=== PATIENT | female | born 1935 | race Caucasian/White ===

== ENCOUNTER 2017-10-25 11:21 | Inpatient (IN) | payer MEDICARE, MEDICAID ==
[~2017-10-25] VITALS: Ht 165.1 cm; Wt 104.3 kg
[2017-10-25] MEDS ORDERED: PRAV20TA4 PO (12:14)
[2017-10-25] MEDS ORDERED: METO50TA3 PO (12:14)
[2017-10-25] MEDS ORDERED: APIX5TAB PO (12:14)
[2017-10-25] MEDS ORDERED: METF500T4 PO (12:14)
[2017-10-25] MEDS ORDERED: DILT120C87 PO (12:14)
[2017-10-25] MEDS ORDERED: OMEP40CA37 PO (12:14)
[2017-10-25] MEDS ORDERED: FURO80TA85 PO (12:14)
[2017-10-25] MEDS ORDERED: LEVO137T2 PO (12:14)
[2017-10-25] MEDS ORDERED: BENA10TA2 PO (12:14)
[2017-10-25] MEDS ORDERED: DIGO125T PO (12:14)
[2017-10-25] MEDS ORDERED: DULO60CA45 PO (12:14)
--- NOTE | 2017-10-25 12:40 | NUR ---
COMING FROM HOME,SENT BY DR GUZMAN FOR MED CLEARANCE TO GO BACK TO [facility]. NAD NOTED. VSS. SEEEN BY FOR EVAL. SAFETY AND COMFORT MEASURES PROVIDED. WILL MONITOR.
--- NOTE | 2017-10-25 13:30 | NUR ---
IV ACCESS STARTED.
[2017-10-25 13:41] LABS: BASOPHILS # (AUTO) 0.1 /CMM (0.0-0.2); BASOPHILS % (AUTO) 1.5 % (0.0-2.0); EOSINOPHILS # (AUTO) 0.1 /CMM (0.0-0.7); EOSINOPHILS % (AUTO) 1.7 % (0.0-6.0); HEMATOCRIT 47 % (33-45); HEMOGLOBIN 15.7 g/dL (11.5-14.8); LYMPHOCYTES # (AUTO) 1.7 /CMM (0.8-4.8); LYMPHOCYTES % (AUTO) 24.9 % (20.0-44.0); MEAN CORPUSCULAR HEMOGLOBIN 31 PG (26.0-33.0); MEAN CORPUSCULAR HGB CONC 34 g/dl (31.0-36.0); MEAN CORPUSCULAR VOLUME 92 fL (82-100); MONOCYTES # (AUTO) 0.5 /CMM (0.1-1.30); MONOCYTES % (AUTO) 6.6 % (2.0-12.0); NEUTROPHILS # (AUTO) 4.6 /CMM (1.8-8.9); NEUTROPHILS % (AUTO) 65.3 % (43.0-81.0); PLATELET COUNT (AUTO) 284 /CMM (150-450); RDW COEFFICIENT OF VARIATION 13.4 (11.5-15.0); RED BLOOD CELL COUNT(AUTO) 5.09 MIL/uL (4.0-5.2)
[2017-10-25 13:50] LABS: CARBON DIOXIDE 35 mmol/L (21-32); CHLORIDE 97 mmol/L (98-107); CREATININE 1.2 mg/dL (0.6-1.3); GLUCOSE 294 mg/dL (74-106); POTASSIUM 4.2 mmol/L (3.5-5.1); SODIUM SERUM 140 mmol/L (136-145); UREA NITROGEN, BLOOD 25 mg/dL (7-18)
[2017-10-25] MEDS ORDERED: ONDANSETRON HCL/PF 4 MG/2 ML VIAL IVP PRN ×2 (15:30→15:45)
[2017-10-25] MEDS ORDERED: MAGNESIUM HYDROXIDE 30 ML UDC PO PRN ×2 (15:30→15:45)
[2017-10-25] MEDS ORDERED: HYDROCODONE/APAP 5/325MG 1 EACH TABLET PO PRN ×2 (15:30→15:45)
[2017-10-25] MEDS ORDERED: INSULIN REGULAR, HUMAN 100 UNIT/ML 3 ML VIAL SQ PRN (15:30)
[2017-10-25] MEDS ORDERED: ZOLPIDEM TARTRATE 5 MG TABLET PO PRN ×2 (15:30→15:45)
[2017-10-25] MEDS ORDERED: ACETAMINOPHEN 325 MG TABLET PO PRN ×2 (15:30→15:45)
[2017-10-25] MEDS ORDERED: Z GUARD REMEDY 2 OZ OINT TP PRN ×2 (15:30→15:45)
[2017-10-25] MEDS ORDERED: DEXTROSE 50%-WATER 50 ML DISP.SYRIN IV PRN ×2 (15:30→15:45)
[2017-10-25] MEDS ORDERED: MAG HYDROX/AL HYDROX/SIMETH 30 ML UDC PO PRN ×2 (15:30→15:45)
--- NOTE | 2017-10-25 15:40 | NUR ---
ADMIT TO THE MS FLOOR; CONTINUE PLAN OF CARE - ACCEPTED BY DR. INGRAM
[2017-10-25 16:00] VITALS: BP 129/86
--- NOTE | 2017-10-25 16:00 | NUR ---
MS RN RECEIVED ON BED, AWAKE,ALERT,ORIENTED X4,MONGOLIAN SPEAKING, NOT IN ANY FORM OF DISTRESS, RESPIRATIONS EVEN AND UNLABORED,NO SOB NOTED, LUNGS ARE CLEAR,ABDOMEN SOFT,POSITIVE BOWEL SOUNDS, DENIES PAIN AT THIS TIME,CAME IN FROM ER W/ CC OF GENERALIZED WEAKNESS SECONDARY TO SMOKE INHALATION, WILL MONITOR PATIENT'S CONDITION.
[2017-10-25] MEDS ORDERED: APIXABAN 5 MG TABLET PO SCH (17:00)
[2017-10-25] MEDS: APIXABAN 5 MG TABLET PO SCH (17:00)
[2017-10-25] MEDS: METOPROLOL TARTRATE 50 MG TABLET PO SCH (17:00)
[2017-10-25] MEDS ORDERED: METOPROLOL TARTRATE 50 MG TABLET PO SCH (17:00)
--- NOTE | 2017-10-25 17:00 | NUR ---
MS RN ADMITTED UNDER THE SERVICE OF DR. INGRAM, ALL NEEDS ATTENDED.
[2017-10-25] MEDS: BLOOD SUGAR DIAGNOSTIC 1 EACH STRIP IN SCH ×2 (17:23→21:41)
[2017-10-25] MEDS ORDERED: BLOOD SUGAR DIAGNOSTIC 1 EACH STRIP IN SCH (17:30)
--- NOTE | 2017-10-25 17:30 | NUR ---
MS LANDAVERDE BS - 136 - 2 UNITS OF REGULAR INSULIN GIVEN SQ.
[2017-10-25] MEDS: INSULIN REGULAR, HUMAN 100 UNIT/ML 3 ML VIAL SQ PRN ×2 (17:40→21:45)
--- NOTE | 2017-10-25 18:47 | NUR ---
MS RN ON BED, NO CHANGE OF CONDITION, ALL NEEDS ATTENDED.
[2017-10-25 20:00] VITALS: BP 123/63
[2017-10-25 20:34] VITALS: BP 123/63
[2017-10-25] MEDS: METFORMIN 500 MG TABLET PO SCH (20:38)
[2017-10-25] MEDS ORDERED: METFORMIN 500 MG TABLET PO SCH (21:00)
[2017-10-25] MEDS: PRAVASTATIN SODIUM 20 MG TABLET PO SCH (21:49)
[2017-10-25] MEDS ORDERED: PRAVASTATIN SODIUM 20 MG TABLET PO SCH (22:00)
--- NOTE | 2017-10-26 04:45 | NUR ---
RN NOTES No significant change in condition. Patient slept comfortably during shift. Accucheck done no s/s of hypo/hyperglycemia. ADue meds given as ordered. All needs attended. Will continue to monitor.
[2017-10-26] MEDS: INSULIN REGULAR, HUMAN 100 UNIT/ML 3 ML VIAL SQ PRN ×4 (06:17→21:43)
[2017-10-26] MEDS: BLOOD SUGAR DIAGNOSTIC 1 EACH STRIP IN SCH ×4 (06:20→21:33)
[2017-10-26] MEDS ORDERED: LEVOTHYROXINE SODIUM 137 MCG TABLET PO SCH (07:30)
[2017-10-26] MEDS ORDERED: PANTOPRAZOLE 40 MG TABLET.DR PO SCH (07:30)
[2017-10-26 08:00] VITALS: BP 160/89
--- NOTE | 2017-10-26 08:00 | NUR ---
RN NOTES RECEIVED PATIENT IN THE ROOM, SITTING EDGE OF THE BED, PATIENT LITHUANIAN LAURENKER, A/O X3, PATIENT HAS NO RESPIRATORY DISTRESS, V/S TAKEN, ADMINISTERED SCHEDULED MEDICATION, IV LINE ON RIGHT HAND INTACT, PATIENT USING WALKER ASSIST ADL'S, AND BATHROOM, ENCOURAGED TO EXPRESS FEELINGS AND CONCERNS, CALL LIGHT WITHIN TO REACH, SAFETY PRECAUTION MAINTAINED ALL THE TIME.
[2017-10-26] MEDS ORDERED: DIGOXIN 0.125 MG TABLET PO SCH (09:00)
[2017-10-26] MEDS ORDERED: BENAZEPRIL HCL 10 MG TABLET PO SCH (09:00)
[2017-10-26] MEDS ORDERED: FUROSEMIDE 80 MG TABLET PO SCH (09:00)
[2017-10-26] MEDS ORDERED: DULOXETINE HCL 30 MG CAPSULE.DR PO SCH (09:00)
[2017-10-26] MEDS ORDERED: DILTIAZEM HCL CD 120 MG PO SCH (09:00)
[2017-10-26] MEDS: METFORMIN 500 MG TABLET PO SCH ×2 (10:23→21:31)
[2017-10-26] MEDS: LEVOTHYROXINE SODIUM 137 MCG TABLET PO SCH (10:23)
[2017-10-26] MEDS: DULOXETINE HCL 30 MG CAPSULE.DR PO SCH (10:23)
[2017-10-26] MEDS: PANTOPRAZOLE 40 MG TABLET.DR PO SCH (10:23)
[2017-10-26] MEDS: METOPROLOL TARTRATE 50 MG TABLET PO SCH ×2 (10:24→17:35)
[2017-10-26] MEDS: FUROSEMIDE 80 MG TABLET PO SCH (10:24)
[2017-10-26] MEDS: DILTIAZEM HCL CD 120 MG PO SCH (10:24)
[2017-10-26] MEDS: BENAZEPRIL HCL 10 MG TABLET PO SCH (10:25)
[2017-10-26] MEDS: APIXABAN 5 MG TABLET PO SCH ×2 (12:03→17:34)
--- NOTE | 2017-10-26 13:00 | NUR ---
RN NOTES PATIENT IN THE BED BS-318 MG/DL, COVERAGE GIVEN, NO ACUTE DISTRESS, PATIENT REFUSED PAIN AT THIS TIME. CALL LIGHT WITHIN TO REACH. CONTINUED MONITORING.
[2017-10-26] MEDS: DIGOXIN 0.125 MG TABLET PO SCH (15:55)
[2017-10-26 16:00] VITALS: BP 141/81
--- NOTE | 2017-10-26 17:02 | NUR ---
RN NOTES BS-250, PATIENT LYING SHEKHAR OF THE BED, NO ACUTE DISTRESS, CALL LIGHT WITHIN TO REACH, CONTINUED MONITORING.
--- NOTE | 2017-10-26 18:30 | NUR ---
RN NOTES BS-250 MG/DL PATIENT MED COMPLIANT, V/S STABLE, NO C/O PAIN, CALL LIGHT WITHIN TO REACH, PATIENT EATING. CALL LIGHT WITHIN TO REACH, SAFETY PRECAUTION MAINTAINED ALL THE TIME. ENDORSED ONCOMING NURSE FOR CONTINUATION OF CARE.
--- NOTE | 2017-10-26 19:30 | NUR ---
MS TABBER INITIAL NOTES SEEN PT IN LYING AND RESTING AT THIS TIME BUT AROUSES TO TOUCH, ISRAELI SPEAKING ONLY BUT UNDERSTOOD SIMPLE IRISH . DENIES ANY PAIN OR ANY DISCOMFORT AT THIS TIME. KEPT HER WARM AND COMFORTABLE AT ALL TIMES. NO SOB NOTED. PLACE CALL LIGHT AT REACH. WILL CONTINUE TO MONITOR.
[2017-10-26 20:00] VITALS: BP 128/73
[2017-10-26] MEDS: PRAVASTATIN SODIUM 20 MG TABLET PO SCH (21:38)
--- NOTE | 2017-10-27 02:14 | NUR ---
SAFETY DEPOSIT CLERK/NOTES PT SLEEPING COMFORTABLY IN BED WITHOUT ANY ACUTE DISTRESS NOTED. RESPIRATION EVEN AND NON-LABORED. KEPT HER WARM AND COMFORTABLE AT ALL TIMES.PLACE CALL LIGHT AT REACH.
[2017-10-27] MEDS: PANTOPRAZOLE 40 MG TABLET.DR PO SCH (06:21)
[2017-10-27] MEDS: LEVOTHYROXINE SODIUM 137 MCG TABLET PO SCH (06:21)
[2017-10-27] MEDS: BLOOD SUGAR DIAGNOSTIC 1 EACH STRIP IN SCH ×4 (06:21→21:17)
[2017-10-27] MEDS: INSULIN REGULAR, HUMAN 100 UNIT/ML 3 ML VIAL SQ PRN ×5 (06:22→21:20)
--- NOTE | 2017-10-27 06:31 | NUR ---
MS INTERMEDIATE TEACHER NOTES PT WOKE UP ASSISTED TO THE RESTROOM, NO SIGNS OF ANY SOB NOTED, SHE ONLY STATED "PRIO MEANS COLD". BAKC TO BED AND BLOOD SUGAR CHECKED DONE 278, 6 UNITS OF INSULIN GIVEN ORDERED, NO SIGNS OF HYPER GLYCEMIA NOTED. KEPT HER WARM AND COMFORTABLE AT ALL TIMES. WILL CONTINUE TO MONITOR. PLACE CALL LIGHT AT REACH.
--- NOTE | 2017-10-27 07:01 | NUR ---
MS CAD DESIGNER CLOSING NOTES' PT BACK TO SLEEP , STABLE TAYLOR THE NIGHT AND SLEPT WELL. ALL DUE MEDS GIVEN AND ALL NEEDS MET. NO SOB NOTED AND NO SIGNS OF ANY DISCOMFORT, KEPT HER WARM AND COMFORTABLE AT ALL TIMES. BED IN LOW AND LOCK IN POSITION WITH SIDE RAILS X2 UP. PLACE CALL LIGHT AT REACH. ENDORSE TO AM NURSE FOR CONTINUITY OF CARE.
[2017-10-27 08:00] VITALS: BP 140/65
--- NOTE | 2017-10-27 08:00 | NUR ---
MS LANDAVERDE AM NOTES RECEIVED PATIENT IN THE ROOM, SITTING EDGE OF THE BED, PATIENT MALDIVIAN SPEAKING ONLY, A/O X3, PATIENT HAS NO RESPIRATORY DISTRESS, IV LINE ON RIGHT HAND INTACT, PATIENT USING WALKER AND ASSISTED WITH ADL'S, AND BATHROOM, ENCOURAGED TO EXPRESS FEELINGS AND CONCERNS, CALL LIGHT WITHIN TO REACH, SAFETY PRECAUTION MAINTAINED ALL THE TIME.
[2017-10-27] MEDS: DILTIAZEM HCL CD 120 MG PO SCH (09:03)
[2017-10-27] MEDS: FUROSEMIDE 80 MG TABLET PO SCH (09:04)
[2017-10-27] MEDS: DULOXETINE HCL 30 MG CAPSULE.DR PO SCH (09:04)
[2017-10-27] MEDS: METFORMIN 500 MG TABLET PO SCH ×2 (09:04→21:24)
[2017-10-27] MEDS: BENAZEPRIL HCL 10 MG TABLET PO SCH (09:05)
[2017-10-27] MEDS: METOPROLOL TARTRATE 50 MG TABLET PO SCH ×2 (09:05→17:22)
[2017-10-27] MEDS: APIXABAN 5 MG TABLET PO SCH ×2 (09:06→17:20)
[2017-10-27] MEDS: DIGOXIN 0.125 MG TABLET PO SCH (13:06)
[2017-10-27 16:00] VITALS: BP 144/77
--- NOTE | 2017-10-27 18:03 | NUR ---
RN MS CLOSING NOTES Resident sitting in chair. Pt noted to have BS 410 @ 1710 10 units given, rechecked @1750 BS 429 after eating dinner, notified Dr Cordero with orders to cover again based on the sliding scale, pt refused, explain risk and benefits, strongly refused. Endorsed to sap solutions architect nurse to rechecked and continue monitor pt. Patient denies any distress, s/sx hypo/hyperglycemia and sitting in the chair at the hallway. No SOB noted, Breathing unlabored. Denies any pain.
--- NOTE | 2017-10-27 19:45 | NUR ---
MS METAL PRODUCTS VIEWER INITIAL NOTES PT SEEN SITTING IN THE CHAIR ALERT [place] SPEAKING ONLY. DENIES ANY PAIN OR ANY DISCOMFORT. NO SOB NOTED , BREATHING EVEN AND NON-LABORED. PT STATED IN UZBEK SHE WANTS TO GO HOME. SPOKE TO HER WITH THE HELPED OF LULI ÁLVAREZ. KEPT HER SAFE AND COMFORTABLE AT ALL TIMES. WILL CONTINUE TO MONITOR.
[2017-10-27 20:00] VITALS: BP_SYST 115; BP_SYST 135; BP_DIAS 49; BP_DIAS 63
--- NOTE | 2017-10-27 21:20 | NUR ---
MS DONOR CENTER TECHNICIAN NOTES BLOOD SUGAR CHECKED 295, 6 UNITS OF INSULIN GIVEN PLUS HER ROUTINE GLUCOPHAGE GIVEN PO ORDERED. SNACKS ALSO SERVED. NO SIGNS OF HYPER GLYCEMIA NOTED. WILL CONTINUE TO MONITOR. PLACE CALL LIGHT AT REACH.
[2017-10-27] MEDS: PRAVASTATIN SODIUM 20 MG TABLET PO SCH (23:33)
--- NOTE | 2017-10-28 | NUR ---
ELECTRO MECHANICAL DESIGNER/NOTES PT SLEEPING COMFORTABLY IN BED WITHOUT ANY ACUTE DISTRESS NOTED. RESPIRATION EVEN AND NON-LABORED, KEPT HER WARM AND COMFORTABLE AT ALL TIMES. WILL CONTINUE TO MONITOR.
[2017-10-28] MEDS: PANTOPRAZOLE 40 MG TABLET.DR PO SCH (06:20)
[2017-10-28] MEDS: LEVOTHYROXINE SODIUM 137 MCG TABLET PO SCH (06:20)
[2017-10-28] MEDS: BLOOD SUGAR DIAGNOSTIC 1 EACH STRIP IN SCH ×2 (06:20→13:26)
[2017-10-28] MEDS: INSULIN REGULAR, HUMAN 100 UNIT/ML 3 ML VIAL SQ PRN ×2 (06:22→13:25)
--- NOTE | 2017-10-28 06:51 | NUR ---
MS BERTRAM FAUSTO NOTES PT SLEEPING AT THIS TIME, BUT AROUSES TO TOUCH, BLOOD SUGAR CHECKED DONE, 270, 6 UNITS OF INSULIN GIVEN, NO SIGNS OF HYPER GLYCEMIA NOTED. ALL DUE MEDS GIVEN . SLEPT WELL AND STABLE TAYLOR THE NIGHT. KEPT HIM WARM AND COMFORTABLE AT ALL TIMES. PLACE CALL LIGHT AT REACH. WILL ENDORSE TO AM NURSE FOR CONTINUITY OF CARE.
--- NOTE | 2017-10-28 07:58 | NUR ---
MS RN OPENING NOTES PATIENT SLEEPING, AROUSABLE , RESPONSIVE TO VERBAL STIMULI, HOB ELEVATED. BED IN LOW POSITION, LOCKED. SIDERAILS UP X2. NO SOB NOTED. RESPIRATIONS EVEN AND UNLABORED. IV ACCESS ON RFA PATENT, NO REDNESS, NO S/SX OF INFILTRATION NOTED. CALL LIGHT PLACED WITHIN REACH. WILL CONTINUE TO MONITOR ACCORDINGLY.
[2017-10-28 08:00] VITALS: BP 144/76
[2017-10-28 08:34] LABS: BASOPHILS % (AUTO) 0.3 % (0.0-2.0); EOSINOPHILS # (AUTO) 0.1 /CMM (0.0-0.7); HEMATOCRIT 49 % (33-45); LYMPHOCYTES # (AUTO) 1.9 /CMM (0.8-4.8); LYMPHOCYTES % (AUTO) 26.7 % (20.0-44.0); MEAN CORPUSCULAR HEMOGLOBIN 31 PG (26.0-33.0); MEAN CORPUSCULAR HGB CONC 33 g/dl (31.0-36.0); MEAN CORPUSCULAR VOLUME 94 fL (82-100); MONOCYTES # (AUTO) 0.5 /CMM (0.1-1.30); MONOCYTES % (AUTO) 6.6 % (2.0-12.0); NEUTROPHILS # (AUTO) 4.7 /CMM (1.8-8.9); NEUTROPHILS % (AUTO) 64.4 % (43.0-81.0); PLATELET COUNT (AUTO) 270 /CMM (150-450); RDW COEFFICIENT OF VARIATION 14.3 (11.5-15.0); RED BLOOD CELL COUNT(AUTO) 5.25 MIL/uL (4.0-5.2); WHITE BLOOD COUNT (AUTO) 7.3 K/uL (4.3-11.0)
[2017-10-28] MEDS: METFORMIN 500 MG TABLET PO SCH (08:59)
[2017-10-28] MEDS: DULOXETINE HCL 30 MG CAPSULE.DR PO SCH (08:59)
[2017-10-28] MEDS: APIXABAN 5 MG TABLET PO SCH (08:59)
[2017-10-28 09:00] VITALS: BP 144/76
[2017-10-28] MEDS: FUROSEMIDE 80 MG TABLET PO SCH (09:00)
[2017-10-28] MEDS: DILTIAZEM HCL CD 120 MG PO SCH (09:00)
[2017-10-28] MEDS: METOPROLOL TARTRATE 50 MG TABLET PO SCH (09:00)
[2017-10-28] MEDS: BENAZEPRIL HCL 10 MG TABLET PO SCH (09:00)
[2017-10-28 09:11] LABS: CALCIUM, SERUM 9.6 mg/dL (8.5-10.1); CARBON DIOXIDE 34 mmol/L (21-32); CHLORIDE 99 mmol/L (98-107); CREATININE 1.1 mg/dL (0.6-1.3); GLUCOSE 282 mg/dL (74-106); POTASSIUM 4.2 mmol/L (3.5-5.1); SODIUM SERUM 139 mmol/L (136-145); UREA NITROGEN, BLOOD 22 mg/dL (7-18)
[2017-10-28] MEDS: DIGOXIN 0.125 MG TABLET PO SCH (13:28)
--- NOTE | 2017-10-28 13:28 | NUR ---
BLOOD SUGAR 407-NOTIFIED DR HAMPTON AND ADMINISTERED 10 UNITS PER SL SCALE AND PER MD ORDER.WILL RECHECK IN 1 HR.PT JUST GOT OUT OF THE SHOWER DELAYING THE ADMINISTRATION OF 10 UNITS SQ INSULIN AND DIGOXIN PO.WILL RECHECK AFTER 1 HR
--- NOTE | 2017-10-28 13:56 | NUR ---
PT STILL SITTING IN BED DENYING ANY DISTRESS.NO S/S HYPO/HYPERGLYCEMIA SYMPTOMS.
--- NOTE | 2017-10-28 14:30 | NUR ---
MS BIKE DESIGNER NOTES PATIENT DISCHARGED WITH STABLE VITAL SIGNS, ALERT ,ORIENTED IN A GURNEY ACCOMPANIED BY 2 EMT PERSONNEL. NO SOB NOTED. NO SIGN OF ACUTE DISTRESS NOTED. BREATHING REGULAR EVEN AND UNLABORED. DENIED ANY PAIN, NO FACIAL GRIMACING NOTED. SKIN IS SOFT AND WARM TO TOUCH. NO S/SX OF HYPO/HYPERGLYCEMIA NOTED. ALL DISCHARGE INSTRUCTIONS GIVEN TO THE PATIENT , VERBALIZED UNDERSTANDING. ALL BELONGINGS ACCOUNTED FOR. IV ACCESS REMOVED ON THE RFA WITHOUT SIGN OF BLEEDING OR SWELLING, PATIENT TOLERATED WELL. DISCHARGE PAPERS HANDED OVER TO EMT PERSONNEL, REPORT GIVEN TO SNF RN JANICE. DAUGHTER MERARI MADE AWARE OF THE TRANSFER.
== END 2017-10-28 14:29 | DRG 917 ==
LOC: ER 11:29 → MED 15:49
PROVIDERS: ADMIT Internal Medicine; ATTEND Internal Medicine
DX: T59.811A Toxic effect of smoke, accidental (unintentional), initial encounter (principal); E11.00 Type 2 diabetes mellitus with hyperosmolarity without nonketotic hyperglycemic-hyperosmolar coma (NKHHC); N17.0 Acute kidney failure with tubular necrosis; G93.49 Other encephalopathy; J70.5 Respiratory conditions due to smoke inhalation; I50.9 Heart failure, unspecified; I11.0 Hypertensive heart disease with heart failure; E11.9 Type 2 diabetes mellitus without complications; E03.9 Hypothyroidism, unspecified; E78.5 Hyperlipidemia, unspecified; Y92.129 Unspecified place in nursing home as the place of occurrence of the external cause; X08.8XXA Exposure to other specified smoke, fire and flames, initial encounter; E11.65 Type 2 diabetes mellitus with hyperglycemia; F03.90 Unspecified dementia, unspecified severity, without behavioral disturbance, psychotic disturbance, mood disturbance, and anxiety; Z91.013 Allergy to seafood; Z79.899 Other long term (current) drug therapy; F41.9 Anxiety disorder, unspecified; F32.9 Major depressive disorder, single episode, unspecified; Z79.84 Long term (current) use of oral hypoglycemic drugs; I48.0 Paroxysmal atrial fibrillation
CPT/HCPCS: 36415; 80048-TC; 80162-TC; 82962-TC; 85025-TC; 87081-TC; J1815; Z7610